=== PATIENT | female | born 1950 | race Asian ===

== ENCOUNTER 2018-06-17 11:52 | Emergency (ER) | payer MEDICARE, BC ==
[2018-06-17] MEDS: KETOROLAC 60 MG INJ IM (12:50)
[2018-06-17] MEDS: CYCLOBENZAPRINE 10 MG TAB PO (12:50)
== END 2018-06-17 14:20 | disposition home or self-care (01) ==
LOC: FTE 14:20
DX: M54.41 Lumbago with sciatica, right side (principal); M54.42 Lumbago with sciatica, left side; I10 Essential (primary) hypertension; E11.9 Type 2 diabetes mellitus without complications; Z79.84 Long term (current) use of oral hypoglycemic drugs
CPT/HCPCS: 96372; 99284-25